=== PATIENT | male | born 1960 | race Caucasian/White ===

== ENCOUNTER → 2016-10-13 | Outpatient (CLI) | payer OTHER ==
--- NOTE | 2016-10-13 09:42 | REP ---
CT study of the chest without contrast: History: Abnormal breath sounds. COPD. No comparison imaging. CT findings: The lung serrano are clear. No evidence of infiltrate, mass, atelectasis or significant lung nodule. No pleural or pericardial effusion is seen. Tracheobronchial tree is unremarkable. There is some vascular calcification in the course of the left coronary artery and in the transverse aorta. No adrenal lesion is seen. The visualized upper abdominal structures are otherwise unremarkable. Two or three tiny hepatic cysts are seen in the left lobe of the liver. No bony destructive lesion is seen. Impression: Left coronary artery vascular calcification seen, otherwise no active disease. Signed by Rickey Madrigal MD 10/13/2016 10:23 A
== END ==
LOC: M RAD 08:44
PROVIDERS: ATTEND Family Medicine
DX: R91.8 Other nonspecific abnormal finding of lung field (principal); J44.9 Chronic obstructive pulmonary disease, unspecified; I88.8 Other nonspecific lymphadenitis; I25.10 Atherosclerotic heart disease of native coronary artery without angina pectoris

== ENCOUNTER → 2017-03-24 | Outpatient (CLI) | payer OTHER ==
[2017-03-24 11:05] LABS: BASO % 0.8 % (0.0-1.0); EOS # 0.1 K/mm3 (0.0-0.50); EOS % 2.2 % (0.0-3.0); LARGE UNSTAINED CELL # 0.1 K/mm3 (0.0-0.4); LARGE UNSTAINED CELL % 1.7 % (0.0-4.0); LYMPH % 32.5 % (24.0-44.0); MEAN CORPUSCULAR HEMOGLOBIN 32.6 pg (27.0-33.0); MEAN CORPUSCULAR HGB CONC 33.9 g/dl (32.0-36.5); MEAN CORPUSCULAR VOLUME 96.3 fl (80.0-96.0); MONO # 0.4 K/mm3 (0.0-0.8); MONO % 6.9 % (0.0-5.0); NEUTROPHILS # 3.3 K/mm3 (1.8-7.7); PLATELET COUNT, AUTOMATED 157 k/mm3 (150-450); RED CELL DISTRIBUTION WIDTH 13.1 % (11.5-14.5); WHITE BLOOD COUNT 5.8 K/mm3 (4.0-10.0)
[2017-03-24 11:40] LABS: ALBUMIN 3.7 GM/DL (3.2-5.2); ALBUMIN/GLOBULIN RATIO 1.16 (1.00-1.93); ALKALINE PHOSPHATASE 54 U/L (45-117); ALT/SGPT 28 U/L (12-78); ANION GAP 5 MEQ/L (8-16); AST/SGOT 17 U/L (15-37); BILIRUBIN,TOTAL 0.3 MG/DL (0.2-1.0); BLOOD UREA NITROGEN 12 MG/DL (7-18); CARBON DIOXIDE LEVEL 29 MEQ/L (21-32); CHLORIDE LEVEL 108 MEQ/L (98-107); CHOLESTEROL LEVEL 220 MG/DL (<200); FREE T4 1.15 NG/DL (0.76-1.46); GLOMERULAR FILTRATION RATE > 60.0 (>56); GLUCOSE, FASTING 97 MG/DL (70-105); POTASSIUM SERUM 4.6 MEQ/L (3.5-5.1); SODIUM LEVEL 142 MEQ/L (136-145); TOTAL PROTEIN 6.9 GM/DL (6.4-8.2); TRIGLYCERIDES LEVEL 135 MG/DL (<150)
[2017-03-26 00:06] LABS: Lyme Disease IgG/IgM Antibodie <0.91 ISR (0.00-0.90); Lyme Disease IgM Ab Quantitati <0.80 index (0.00-0.79)
== END ==
LOC: M LAB 10:33
PROVIDERS: ATTEND Family Medicine
DX: Z00.01 Encounter for general adult medical examination with abnormal findings (principal); D50.9 Iron deficiency anemia, unspecified; Z79.899 Other long term (current) drug therapy; E78.00 Pure hypercholesterolemia, unspecified; R53.81 Other malaise

== ENCOUNTER → 2018-03-05 | Outpatient (CLI) | payer OTHER | LOC: M RAD 10:03 | DX: J44.9 Chronic obstructive pulmonary disease, unspecified (principal); I65.21 Occlusion and stenosis of right carotid artery | CPT/HCPCS: 71046 ==

== ENCOUNTER → 2019-05-21 | Outpatient (CLI) | payer OTHER ==
--- NOTE | 2019-05-22 12:00 | REP ---
Clinical: Carotid arterial occlusion . Technique: Harp scale and color Doppler evaluation using linear high frequency transducer Findings: Two-dimensional harp scale and color images demonstrate minimal bilateral atheromatous plaquing at the carotid bulbs with essentially normal arterial lumen, laminar flow and no appreciable narrowing. Color Doppler interrogation demonstrates normal arterial wave patterns and velocities with no significant spectral broadening. Normal flow direction is appreciated in the bilateral vertebral arteries. RIGHT (cm/s) LEFT (cm/s) ICA peak systolic velocity 67.6 60.8 ICA diastolic velocity 17.6 23.7 ECA peak systolic velocity 48.3 62.0 CCA peak systolic velocity 62.2 70.0 ICA/CCA ratio 1.1 0.9 Impression: No hemodynamically significant areas of narrowing or stenosis appreciated. Based on set standards narrowing falls within the less than 50% range. Electronically Signed by Darin Santacruz MD 05/22/2019 04:37 A
== END ==
LOC: M RAD 12:14
PROVIDERS: ATTEND Family Medicine
DX: I65.21 Occlusion and stenosis of right carotid artery (principal); E78.00 Pure hypercholesterolemia, unspecified

== ENCOUNTER → 2019-09-27 | Outpatient (CLI) | payer OTHER ==
[2019-09-27 11:10] LABS: BASO # 0.1 10^3/uL (0.0-0.2); BASO % 0.8 % (0.0-1.0); EOS # 0.1 10^3/uL (0.0-0.5); EOS % 1.1 % (0.0-3.0); HEMATOCRIT 50.3 % (42.0-52.0); HEMOGLOBIN 16.2 g/dl (13.5-17.5); LYMPH # 2.7 10^3/uL (1.5-5.0); LYMPH % 40.8 % (24.0-44.0); MEAN CORPUSCULAR HEMOGLOBIN 31.1 pg (27.0-33.0); MEAN CORPUSCULAR HGB CONC 32.2 g/dl (32.0-36.5); MEAN CORPUSCULAR VOLUME 96.5 fl (80.0-96.0); MONO # 0.5 10^3/uL (0.0-0.8); MONO % 7.9 % (0.0-5.0); NEUTROPHILS # 3.2 10^3/uL (1.5-8.5); NEUTROPHILS % 49.2 % (36.0-66.0); PLATELET COUNT, AUTOMATED 174 10^3/uL (150-450); RED BLOOD COUNT 5.21 10^6/uL (4.30-6.10); WHITE BLOOD COUNT 6.6 10^3/uL (4.0-10.0)
[2019-09-27 11:39] LABS: ALBUMIN 4.2 GM/DL (3.2-5.2); ALT/SGPT 21 U/L (12-78); BILIRUBIN,TOTAL 0.4 MG/DL (0.2-1.0); BLOOD UREA NITROGEN 13 MG/DL (7-18); C REACTIVE PROTEIN QUANTITATIV < 0.30 MG/DL (0.00-0.30); CALCIUM LEVEL 9.2 MG/DL (8.5-10.1); CARBON DIOXIDE LEVEL 26 MEQ/L (21-32); CHLORIDE LEVEL 107 MEQ/L (98-107); CHOLESTEROL LEVEL 251 MG/DL (<200); CHOLESTEROL RISK RATIO 3.637 (<5); CREATININE FOR GFR 0.94 MG/DL (0.70-1.30); FREE T4 1.21 NG/DL (0.76-1.46); GLOMERULAR FILTRATION RATE > 60.0 (>56); GLUCOSE, FASTING 99 MG/DL (70-100); HDL CHOLESTEROL 69 MG/DL (>40); LDL CHOLESTEROL 160 MG/DL (<100); NON-HDL-C 182 MG/DL; POTASSIUM SERUM 4.3 MEQ/L (3.5-5.1); SODIUM LEVEL 139 MEQ/L (136-145); TOTAL PROTEIN 7.4 GM/DL (6.4-8.2); TRIGLYCERIDES LEVEL 110 MG/DL (<150)
[2019-09-27 11:44] LABS: ESTRADIOL 41.6 PG/ML (<39.8); TESTOSTERONE 722 NG/DL (241-827); TOTAL 25(OH) VITAMIN D 27.1 NG/ML (30.0-100.0); TOTAL T3 95.1 NG/DL (60.0-181.0)
== END ==
LOC: M LAB 10:17
PROVIDERS: ATTEND Family Medicine
DX: D50.9 Iron deficiency anemia, unspecified (principal)

== ENCOUNTER → 2019-11-22 | Outpatient (CLI) | payer OTHER ==
--- NOTE | 2019-11-22 09:56 | REP ---
CT of the chest without IV contrast: Comparison is 10/13/2016. There are no lung nodules or masses. There are no infiltrates or pleural effusions. No bulla are identified. The lung serrano are otherwise unremarkable. There is no mediastinal lymph node enlargement. There are a few normal-size nodes. There is no axillary lymph node enlargement. The study is insensitive for hilar lymph node enlargement in the absence of IV contrast. The unenhanced thoracic aorta is unremarkable. Cardiac size is normal. There is no pericardial effusion. There are occasional atheromatous calcifications in the coronary arteries. There is are too small cyst superiorly in the dome of the left lobe of the liver, unchanged. The visualized hepatic parenchyma is otherwise unremarkable. The visualized areas of the gallbladder, pancreas, spleen, adrenals and renal upper poles are unremarkable. Impression: Essentially negative CT study of the chest. No interval change. Occasional coronary artery atheromatous calcifications are again identified. Electronically Signed by Naif Castle MD 11/22/2019 09:47 A
--- NOTE | 2019-11-22 10:15 | REP ---
Thyroid ultrasound: The thyroid right lobe measures 3.7 x 123 x 1.1 cm. The thyroid left lobe measures 3.2 x 0.9 x 1.1 cm. The thyroid isthmus measures 3 mm thickness. The thyroid is normal to small size. The thyroid parenchyma is homogeneous. There are no nodules , cysts or masses. Impression: Essentially negative thyroid ultrasound. Electronically Signed by Naif Castle MD 11/22/2019 10:06 A
--- NOTE | 2019-11-22 10:18 | REP ---
Bilateral carotid duplex ultrasound: Comparison is a 2018. Bilateral carotid artery duplex ultrasound: Peak flow velocity analysis: RIGHT LEFT ICA Peak flow velocity cm/sec the 86.4 cm/sec 66.5 cm/sec ICA Diastolic flow velocity cm/sec 26.7 cm/sec 26.0 cm/sec ICA/CCA Ratio 1.3 cm/sec 0.9 cm/sec ECA Peak flow velocity cm/sec 67.4 cm/sec 65.1 cm/sec CCA Peak flow velocity cm/sec 65.8 cm/sec 72.3 cm/sec There is shallow atheromatous plaque bilaterally. The peak flow velocities are normal bilaterally. The findings indicate less than 50% narrowing bilaterally. There is no significant stenosis on the right on the left. There is antegrade flow in the vertebral arteries bilaterally. No significant interval change. Electronically Signed by Naif Castle MD 11/22/2019 10:10 A
== END ==
LOC: M RAD 09:09
PROVIDERS: ATTEND Family Medicine
DX: J44.9 Chronic obstructive pulmonary disease, unspecified (principal); I25.10 Atherosclerotic heart disease of native coronary artery without angina pectoris; E04.9 Nontoxic goiter, unspecified; I65.21 Occlusion and stenosis of right carotid artery

== ENCOUNTER → 2021-05-27 | Outpatient (CLI) | payer OTHER ==
--- NOTE | 2021-05-28 06:31 | REP ---
INDICATION: GOITER, STENOSIS COMPARISON: 11/22/2019 TECHNIQUE: Harp scale and color Doppler evaluation using linear high frequency transducer Findings: FINDINGS: Two-dimensional harp scale and color images demonstrate mild mixed atheromatous plaquing. Visible stenosis at the left proximal external carotid artery noted. Color Doppler interrogation demonstrates normal arterial wave patterns and velocities with no significant spectral broadening. Normal flow direction is appreciated in the bilateral vertebral arteries. ICA peak systolic velocity: Right 97.5 cm/s; Left 140 cm/s ICA diastolic velocity: Right 23.6 cm/s; Left 36.4 cm/s ECA peak systolic velocity: Right 95.3 cm/s; Left 267 cm/s CCA peak systolic velocity: Right 83.9 cm/s; Left 73.8 cm/s ICA/CCA ratio: Right 1.16 cm/s; Left 1.89 cm/s IMPRESSION: 1. Narrowing of the left internal carotid artery at the less than 50% range. 2. Narrowing of the proximal left external carotid artery suggesting 50-69% range. <Electronically signed by Darin Santacruz > 05/28/21 0628
--- NOTE | 2021-05-28 06:34 | REP ---
INDICATION: GOITER, STENOSIS COMPARISON: 11/22/2019 TECHNIQUE: Harp scale and color evaluation of the thyroid gland using the linear high frequency transducer. FINDINGS: The thyroid gland is normal in contour, shape, size, and echogenicity. No nodule/mass or cystic abnormalities are appreciated. Right thyroid lobe measures 3.9 x 1.4 x 1.1 cm. Isthmus measures 1.0 mm in width. Left thyroid lobe measures 3.3 x 1.1 x 0.7 cm. IMPRESSION: Normal thyroid ultrasound. <Electronically signed by Darin Santacruz > 05/28/21 0630
== END ==
LOC: M RAD 14:49
PROVIDERS: ATTEND Family Medicine
DX: E04.9 Nontoxic goiter, unspecified (principal); I65.21 Occlusion and stenosis of right carotid artery

== ENCOUNTER → 2023-01-19 | Outpatient (CLI) | payer OTHER ==
[2023-01-19 13:07] LABS: BASO % 0.3 % (0.0-1.0); EOS # 0.1 10^3/uL (0.0-0.5); EOS % 0.8 % (0.0-3.0); HEMATOCRIT 46.8 % (42.0-52.0); HEMOGLOBIN 15.5 g/dl (13.5-17.5); LYMPH # 2.3 10^3/uL (1.5-5.0); LYMPH % 26.3 % (24.0-44.0); MEAN CORPUSCULAR HEMOGLOBIN 31.1 pg (27.0-33.0); MEAN CORPUSCULAR HGB CONC 33.1 g/dl (32.0-36.5); MEAN CORPUSCULAR VOLUME 93.8 fl (80.0-96.0); MONO # 0.7 10^3/uL (0.0-0.8); MONO % 7.9 % (2.0-8.0); NEUTROPHILS # 5.6 10^3/uL (1.5-8.5); NEUTROPHILS % 64.4 % (36.0-66.0); PLATELET COUNT, AUTOMATED 183 10^3/uL (150-450); RED BLOOD COUNT 4.99 10^6/uL (4.30-6.10); WHITE BLOOD COUNT 8.7 10^3/uL (4.0-10.0)
[2023-01-19 13:21] LABS: ERYTHROCYTE SEDIMENTATION RATE 22 mm/hr (0-20)
[2023-01-19 13:30] LABS: PROSTATIC SPECIFIC AG MONITOR 0.38 NG/ML (< 4.00)
[2023-01-19 13:32] LABS: ALBUMIN 3.9 G/DL (3.2-5.2); ALKALINE PHOSPHATASE 52 U/L (46-116); ALT/SGPT 19 U/L (7.0-40); AST/SGOT 18 U/L (<34); BILIRUBIN,TOTAL 0.4 MG/DL (0.3-1.2); BLOOD UREA NITROGEN 13 MG/DL (9-23); C REACTIVE PROTEIN QUANTITATIV < 0.40 MG/DL (<1.0); CALCIUM LEVEL 9.1 MG/DL (8.3-10.6); CARBON DIOXIDE LEVEL 29 MMOL/L (20-31); CHLORIDE LEVEL 107 MMOL/L (98-107); CHOLESTEROL LEVEL 151 MG/DL (<200); CHOLESTEROL RISK RATIO 2.12 (<5); CREATININE FOR GFR 0.88 MG/DL (0.70-1.30); GLOMERULAR FILTRATION RATE > 60.0 (>49); GLUCOSE, FASTING 98 MG/DL (74-106); LDL CHOLESTEROL 68.4 MG/DL (<100); POTASSIUM SERUM 4.6 MMOL/L (3.5-5.1); SODIUM LEVEL 141 MMOL/L (136-145); TOTAL PROTEIN 6.8 G/DL (5.7-8.2); TRIGLYCERIDES LEVEL 58 MG/DL (<150)
[2023-01-19 13:33] LABS: TOTAL T3 126.6 NG/DL (60.0-181.0)
[2023-01-19 13:34] LABS: FREE T4 1.17 NG/DL (0.89-1.76); THYROID STIMULATING HORMONE 0.954 uIU/ML (0.55-4.78); TOTAL 25(OH) VITAMIN D 43.2 NG/ML (20.0-100.0)
== END ==
LOC: M LAB 11:54
PROVIDERS: ATTEND Family Medicine
DX: D50.9 Iron deficiency anemia, unspecified (principal); E55.9 Vitamin D deficiency, unspecified; E78.00 Pure hypercholesterolemia, unspecified; H34.211 Partial retinal artery occlusion, right eye; Z12.5 Encounter for screening for malignant neoplasm of prostate; Z79.899 Other long term (current) drug therapy

== ENCOUNTER → 2023-04-06 | Outpatient (CLI) | payer OTHER | LOC: M RAD 15:10 | PROVIDERS: ATTEND Family Medicine | DX: F17.210 Nicotine dependence, cigarettes, uncomplicated (principal); I65.23 Occlusion and stenosis of bilateral carotid arteries; E04.9 Nontoxic goiter, unspecified ==

== ENCOUNTER → 2023-05-02 | Outpatient (CLI) | payer OTHER | LOC: M PLARAD 12:54 | PROVIDERS: ATTEND Family Medicine | DX: R91.8 Other nonspecific abnormal finding of lung field (principal); E04.1 Nontoxic single thyroid nodule | CPT/HCPCS: 78815; A9552 ==

== ENCOUNTER → 2024-01-25 | Outpatient (CLI) | payer OTHER | LOC: M RAD 09:25 | PROVIDERS: ATTEND Family Medicine | DX: R91.1 Solitary pulmonary nodule (principal) ==

== ENCOUNTER 2024-11-26 08:00 | Emergency (ER) | payer OTHER ==
[~2024-11-26] VITALS: Ht 177.8 cm; Wt 81.7 kg
[2024-11-26] MEDS ORDERED: ATOR1TAB21 (08:08)
[2024-11-26] MEDS ORDERED: DEXTROAMP-AMPHETAMIN (08:08)
[2024-11-26] MEDS ORDERED: VITA200016 (08:08)
[2024-11-26] MEDS ORDERED: LEVO75TA4 (08:08)
[2024-11-26 08:54] LABS: BASO % 0.3 % (0.0-1.0); EOS # 0.1 10^3/uL (0.0-0.5); HEMATOCRIT 46.7 % (42.0-52.0); HEMOGLOBIN 15.7 g/dl (13.5-17.5); LYMPH # 0.6 10^3/uL (1.5-5.0); LYMPH % 4.2 % (24.0-44.0); MEAN CORPUSCULAR HEMOGLOBIN 31.2 pg (27.0-33.0); MEAN CORPUSCULAR HGB CONC 33.6 g/dl (32.0-36.5); MEAN CORPUSCULAR VOLUME 92.8 fl (80.0-96.0); MONO # 0.7 10^3/uL (0.0-0.8); MONO % 5.3 % (2.0-8.0); NEUTROPHILS # 11.8 10^3/uL (1.5-8.5); NEUTROPHILS % 88.2 % (36.0-66.0); PLATELET COUNT, AUTOMATED 302 10^3/uL (150-450); RED BLOOD COUNT 5.03 10^6/uL (4.30-6.10); WHITE BLOOD COUNT 13.4 10^3/uL (4.0-10.0)
[2024-11-26 09:13] LABS: LIPASE 27 U/L (12-53)
[2024-11-26 09:15] LABS: ALBUMIN 3.2 G/DL (3.2-5.2); ALKALINE PHOSPHATASE 52 U/L (40-129); ALT/SGPT 51 U/L (7.0-40); AST/SGOT 11 U/L (<34); BILIRUBIN,DIRECT 0.1 MG/DL (<0.4); BILIRUBIN,TOTAL 0.4 MG/DL (0.3-1.2); BLOOD UREA NITROGEN 24 MG/DL (9-23); CALCIUM LEVEL 8.2 MG/DL (8.3-10.6); CARBON DIOXIDE LEVEL 27 MMOL/L (20-31); CHLORIDE LEVEL 100 MMOL/L (98-107); CK-MB VALUE MASS < 1.0 NG/ML (<3.6); CPK CREATINE PHOSPHOKINASE 28 U/L (46-171); CREATININE FOR GFR 0.91 MG/DL (0.70-1.30); GLOMERULAR FILTRATION RATE > 60.0 (>49); GLUCOSE, FASTING 103 MG/DL (74-106); MB/CK RELATIVE INDEX 3.57 (< OR =4); POTASSIUM SERUM 4.2 MMOL/L (3.5-5.1); SODIUM LEVEL 135 MMOL/L (136-145); TOTAL PROTEIN 6.4 G/DL (5.7-8.2)
[2024-11-26 10:05] LABS: CK-MB VALUE MASS < 1.0 NG/ML (<3.6)
[2024-11-26 10:09] LABS: CPK CREATINE PHOSPHOKINASE 29 U/L (46-171); MB/CK RELATIVE INDEX 3.44 (< OR =4)
[2024-11-26] MEDS: NS (Normal Saline) 0.9% 1,000 ML IV ONE (10:25)
[2024-11-26 10:35] LABS: KETONE, URINE AUTO RFX NEGATIVE (NEGATIVE); LEUKOCYTE ESTERASE UR AUTO RFX NEGATIVE (NEGATIVE); NITRITE, URINE AUTO RFX NEGATIVE (NEGATIVE); RBC, URINE AUTO RFX 0 /HPF (0-3); SQUAM EPITHELIAL CELL UR AURFX 0 /HPF (0-6); WBC, URINE AUTO RFX 1 /HPF (0-3)
[2024-11-26] MEDS ORDERED: PANT40TA29 PO (12:29)
[2024-11-26] MEDS ORDERED: SUCR1SS PO (12:29)
[2024-11-26 12:30] VITALS: BP 137/79; TEMP 97.5; O2SAT 95
== END 2024-11-26 12:43 | disposition home or self-care (01) ==
LOC: M ED 08:00
DX: I95.1 Orthostatic hypotension (principal); E86.0 Dehydration; A08.39 Other viral enteritis; E78.5 Hyperlipidemia, unspecified; Z87.891 Personal history of nicotine dependence; Z79.02 Long term (current) use of antithrombotics/antiplatelets; Z79.899 Other long term (current) drug therapy

== ENCOUNTER → 2024-11-27 | Outpatient (REF) | payer OTHER ==
[~2024-11-27] MED LIST: ATOR1TAB21; DEXTROAMP-AMPHETAMIN; LEVO75TA4; PANT40TA29 PO; SUCR1SS PO; VITA200016
== END ==
LOC: M LAB REF 14:42
PROVIDERS: ATTEND Student in an Organized Health Care Education/Training Program
DX: R19.7 Diarrhea, unspecified (principal)